=== PATIENT | male | born 1945 | race Caucasian/White ===

== ENCOUNTER → 2018-08-25 | Outpatient (CLI) | payer OTHER ==
[~2018-08-25] MED LIST: ADVAIR 500-501 EACH INH; ADVIL100 M2 PO; BENICAR40 MG PO; CARVEDILOL25 MG PO; NISOLDIPINE40 MG PO; NORCO 5-325 TA1 EACH PO
== END ==
LOC: RAD 10:41
DX: R60.9 Edema, unspecified (principal)

== ENCOUNTER → 2018-08-26 | Outpatient (CLI) | payer OTHER | LOC: ULTRA 10:37 | DX: M79.89 Other specified soft tissue disorders (principal); R79.1 Abnormal coagulation profile ==

== ENCOUNTER → 2018-12-17 | Outpatient (CLI) | payer OTHER | LOC: RAD 11:42 | DX: M47.26 Other spondylosis with radiculopathy, lumbar region (principal); M41.86 Other forms of scoliosis, lumbar region; I70.0 Atherosclerosis of aorta ==

== ENCOUNTER → 2018-12-24 | Outpatient (CLI) | payer OTHER | LOC: MRI 06:43 | DX: M51.16 Intervertebral disc disorders with radiculopathy, lumbar region (principal); I71.4 Abdominal aortic aneurysm, without rupture; M41.86 Other forms of scoliosis, lumbar region; M48.062 Spinal stenosis, lumbar region with neurogenic claudication; M12.88 Other specific arthropathies, not elsewhere classified, other specified site; M51.27 Other intervertebral disc displacement, lumbosacral region; M51.37 Other intervertebral disc degeneration, lumbosacral region; M48.07 Spinal stenosis, lumbosacral region ==

== ENCOUNTER → 2019-01-14 | Outpatient (CLI) | payer OTHER ==
[2019-01-14 09:40] LABS: CREATININE 1.2 mg/dL (0.7-1.3)
== END ==
LOC: CAT 09:07
PROVIDERS: Surgery Vascular Surgery
DX: K57.30 Diverticulosis of large intestine without perforation or abscess without bleeding (principal); J98.4 Other disorders of lung; I71.4 Abdominal aortic aneurysm, without rupture; R91.8 Other nonspecific abnormal finding of lung field; I70.8 Atherosclerosis of other arteries; I74.09 Other arterial embolism and thrombosis of abdominal aorta

== ENCOUNTER → 2019-01-27 | Outpatient (CLI) | payer OTHER ==
[~2019-01-27] VITALS: Ht 180.3 cm; Wt 96.7 kg
[~2019-01-27] MED LIST changes: +ACETAMINOPHEN325 M1 PO; +CRESTOR10 MG PO; +LISINOPRIL-HCT1 EAC1 PO; +NORCO 5-325 TA1 EAC1 PO
--- NOTE | ~2019-01-27 | HPC ---
[facility] [address] [place] [address] PAIN MANAGEMENT CONSULTATION Name: MARY MCPHERSON [facility] [id number] Admission: 01/27/19 Attend Phys: Mir Keller DO Discharge: Date of : 45 Report #: [id number] THIS REPORT FOR: //name// CC: Mir Vega MD DATE OF SERVICE: 01/27/2019 CHIEF COMPLAINT: Low back pain, left lower extremity pain with paresthesias. HISTORY OF PRESENT ILLNESS: As you know, the patient is a very pleasant 73-year-old male who reports acute onset of low back pain, left lower extremity pain that began approximately 2 months ago. He denies specific injury or trauma that may have led to symptom occurrence. He trialled conservative treatment options including gyky-njl-dwwyryq medications, rest, relaxation and light stretching at home. Unfortunately, this did not improve his overall symptoms. He sought evaluation through his PCP, Dr. Sourav Vega who evaluated the patient and sent for MRI. Findings were such, the patient was then referred to our clinic. The patient indicates today pain is continuous and constant; describes pain as sharp, numbness and tingling. Places current pain score a 7/10, daily average is 7/10, worst pain has been is 9+/10. He states that standing, rotation and certain bending conditions exacerbate his symptoms. It improves with nothing to date except for his hydrocodone that he takes with 1000 mg extra strength Tylenol, which provides benefit. He has been referred to our service to discuss treatment options for suspected lumbar radiculopathy. PAST MEDICAL HISTORY: 1. Asthma. 2. Benign prostatic hypertrophy. 3. Squamous cell carcinoma. 4. Depression. 5. Hyperlipidemia. 6. Hypertension. 7. Chronic lumbar radiculopathy. 8. Allergic rhinitis. 9. Abdominal aortic aneurysm. PAST SURGICAL HISTORY: 1. Rolfe teeth extraction. 2. Vasectomy. 3. Thoracic aortic stenting. 4. Excision of the squamous cell carcinoma via Mohs procedure. 5. LASIK. [facility] [address] [place] [address] PAIN MANAGEMENT CONSULTATION Name: MARY MCPHERSON Room #: REG [facility] Stevens.#: [id number] Admission: 01/27/19 Attend Phys: Mir Keller DO Discharge: Date of : 45 Report #: [id number] 6. Abdominal wall surgery. SOCIAL HISTORY: The patient denies tobacco, IV or illicit drug use. He mixed occasional alcohol beverage. 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 He is not receiving workmen's compensation nor is he trying to obtain disability benefits. Not in litigation in regards to pain. He is unaccompanied today. REVIEW OF SYSTEMS: Positive for night sweats, wearing corrective eyewear, heart trouble, asthma, changes in skin color and texture, chronic low back pain, left lower extremity pain with paresthesias. All other review of systems negative per 12-point review of systems other than those listed in history of present illness. Pain impact score 48/70 indicating hrjxfozp-yr-gvcknp interference of daily activities secondary to pain. 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 CURRENT MEDICATIONS: Carvedilol 25 mg b.i.d., hydrocodone/acetaminophen 5/325 one tab every 4 hours p.r.n. for pain, lovastatin 10 mg per day, lisinopril/hydrochlorothiazide 20/12.5 mg once a day, extra strength Tylenol 500 mg 2 tabs up to 3 times a day. IMAGING: MRI lumbar spine obtained on 12/24/2018 shows L1-L2 unremarkable; L2-L3 with moderate degenerative changes, mild facet arthropathy, mild broad-based disk bulge, mild central canal stenosis, mild foraminal stenosis. L3-L4, large broad-based disk bulge, hypertrophy of the ligamentum flavum, leading to severe central canal stenosis with canal measuring 6 mm; severe narrowing of the right lateral recess, moderate left. L4-L5, large broad-based disk bulge, ligamentum flavum hypertrophy, severe central canal stenosis, central canal measuring 6 mm. Severe narrowing of the left lateral recess and cyhchogb-sr-yuuufk right lateral recess. L5-S1, eenl-ie-kxgvhuxu facet arthropathy changes, mild foraminal stenosis, no central canal stenosis. PQRS: The patient has osteoarthritic changes of the bilateral shoulders, cervical spine and lumbar spine. No rheumatoid arthritis. He is placing pain intensity at 7/10. He is not a fall risk, has not had a fall in last 3 months. He is not on blood thinners, but is treated for hypertension. He has been on opioids, but not for an extended period of time. He has a low opioid addiction potential based on our testing device. Pain impact is 48/70, severe interference of daily activities secondary to pain. PHYSICAL EXAMINATION: VITAL SIGNS: Blood pressure 158/113, pulse is 80, respiratory rate 16 and unlabored. The patient is 97% on room air. Height 5 feet 11 inches tall, [address] [address] PAIN MANAGEMENT CONSULTATION Name: MARY MCPHERSON Room #: REG [facility]#: [id number] Admission: 01/27/19 Attend Phys: Mir Keller DO Discharge: Date of : 45 Report #: [id number] weight 213.2 pounds, BMI calculated 29.7. GENERAL: Well-developed, well-nourished, well-hydrated 73-year-old male appearing stated age, pain is rated around 7/10. HEENT: Normocephalic, atraumatic. Pupils equal, round, reactive to light. Extraocular muscles are intact. Sclerae are nonicteric without injection. NEUROLOGIC: Cranial nerves 2-12 grossly intact. Speech is fluent. The patient deemed a good historian. LUNGS: Clear, no wheezing, rhonchi or rales. CARDIOVASCULAR: Regular. No appreciable gallop, no rub. ABDOMEN: Soft, nontender, nondistended, normal active bowel sounds. EXTREMITIES: Show no clubbing, no cyanosis, and no edema. MUSCULOSKELETAL: Lower extremity strength equal and symmetrical 5/5, intact to light touch from L1 through S2 dermatomes. Seated straight leg raising negative. Supine straight leg raising positive on the left. Marycarmen's test negative. Gait is antalgic favoring the left lower extremity over right. Muscle bulk and tone appears symmetrical in comparing the left lower extremity to right. Ankle clonus negative. Babinski's is negative. Deep tendon reflexes are symmetrical at patella and Achilles. ASSESSMENT: 1. Symptomatic lumbar radiculopathy. 2. 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 3. Displacement of the lumbar intervertebral disk with radiculopathy. 4. Lumbosacral spondylosis with radiculopathy. 5. Foraminal stenosis of the lumbar spine. 6. Facet arthropathy of the lumbar spine. 7. Degeneration of the lumbar spine. 8. Chronic intractable pain. PLAN: Based on today's physical exam, history the patient has provided, the description the patient uses in regards to pain as well as location of symptoms, likely source of the patient's pain is the lumbar radiculopathy. We have spent over 24 minutes of time reviewing the patient's MRI and correlating the findings in that MRI to his current presentation of pain. We also utilized not only the imaging study but modeling here in the office to show the patient the pathology as it exists. After this review of his MRI, we discussed the treatment options for lumbar radicular symptoms secondary to severe central canal stenosis and severe neural foraminal stenosis. The following discussion was had: 1. We discussed physical therapy, stretching exercises and core strengthening as a treatment course. We discussed medication management utilizing neuropathic pain medications and a consistent nonsteroidal anti-inflammatory. We discussed epidural injections, for which the patient was referred to our clinic. We also discussed surgical options, which include spinal cord stimulator therapy or traditional decompressive surgery. After reviewing risks and benefits of all proposed treatment options, the patient chose to [place] [address] PAIN MANAGEMENT CONSULTATION Name: MARY MCPHERSON Room #: REG [facility] Amin#: [id number] Admission: 01/27/19 Attend Phys: Mir Keller DO Discharge: Date of : 45 Report #: [id number] epidural injection. 2. The patient was advised that third republican payer restrictions require the authorization be obtained before the patient could undergo an epidural injection. Authorization could take anywhere from 4-7 working days. We will begin this process immediately. Once we have this achieved, we will contact the patient and have him return to undergo the first in a series of lumbar epidural injections to address lumbar radicular pain. 3. No medication changes made at today's visit. The patient will continue current medical therapy as previously prescribed. We did advise the patient to take no more than 4000 mg of Tylenol a day. It does based on calculation appear he is taking nearly 5000 mg. We recommend a reduction in that medication to reduce the potential for toxicity with acetaminophen. The patient will make adjustments in his dosing. 4. We will see the patient back in followup visit once we have achieved authorization to undergo a lumbar epidural injection. We will keep you apprised of his response to this injection. We are hopeful we will have that injection done prior to the beginning of next week. 5. We wish to thank Dr. Vega for the referral of the patient to our clinic. We will keep you apprised of his response to treatment as we address lumbar radicular symptoms secondary to severe central canal and neural foraminal stenosis. Again, we wish to thank you for the opportunity to see the patient in consultation. By: [id number] Mir Keller DO /nt
[2019-01-27 12:44] VITALS: BP 158/113
--- NOTE | 2019-01-27 12:59 | NUR ---
Pain Clinic Assessment: 1. History of Osteoarthritis: NONE History of Rheumatoid Arthritis: NONE 2. Height: 5 ft. 11 in. 180.3 cm. Weight: 213.2 lb. oz. 96.707 kg. Patient's BMI: 29.7 3. Vital Signs: BP: 158/113 Pulse: 80 Resp: 16 Temp: 02 Sat: 97 ECG Mon: 4. Pain Intensity: 7 5. Fall Risk: Dizziness: N Needs help standing or walking: N Fallen in the last 3 months: N Fall risk comments: 6. Patient on Blood Thinner: None 7. History of Hypertension: Y 8. Opioid Therapy greater than 6 weeks: Opiate Contract Signed: 9. Risk Assessment Tool Provided: LOW 10. Functional Assessment Tool: 58/70 11. Recreational Drug Use: Never Drug Type: Tobacco Use: Never Smoker Tobacco Type: Amount or Packs/day: How Many Years: Alcohol Use: Yes Frequency: Weekly Quant: 3
== END ==
LOC: PAIN 07:08
DX: M51.16 Intervertebral disc disorders with radiculopathy, lumbar region (principal); M12.88 Other specific arthropathies, not elsewhere classified, other specified site; J45.909 Unspecified asthma, uncomplicated; F32.9 Major depressive disorder, single episode, unspecified; E78.5 Hyperlipidemia, unspecified; I10 Essential (primary) hypertension; M48.062 Spinal stenosis, lumbar region with neurogenic claudication; M51.26 Other intervertebral disc displacement, lumbar region; G89.4 Chronic pain syndrome

== ENCOUNTER → 2019-02-11 | Outpatient (CLI) | payer OTHER ==
[~2019-02-11] VITALS: Ht 180.3 cm; Wt 96.0 kg
[2019-02-11 08:16] VITALS: BP 137/94
--- NOTE | 2019-02-11 08:34 | NUR ---
Pain Clinic Assessment: 1. History of Osteoarthritis: NONE History of Rheumatoid Arthritis: NONE 2. Height: 5 ft. 11 in. 180.3 cm. Weight: 211.6 lb. oz. 95.981 kg. Patient's BMI: 29.5 3. Vital Signs: BP: 137/94 Pulse: 64 Resp: 16 Temp: 02 Sat: 98 ECG Mon: 4. Pain Intensity: 5 W/MEDS 8-9 IN MORNING 5. Fall Risk: Dizziness: Y Needs help standing or walking: N Fallen in the last 3 months: N Fall risk comments: 6. Patient on Blood Thinner: None 7. History of Hypertension: Y 8. Opioid Therapy greater than 6 weeks: N Opiate Contract Signed: 9. Risk Assessment Tool Provided: LOW 10. Functional Assessment Tool: 58/70 11. Recreational Drug Use: Never Drug Type: Tobacco Use: Never Smoker Tobacco Type: Amount or Packs/day: How Many Years: Alcohol Use: Yes Frequency: Quant:
--- NOTE | 2019-02-17 13:41 | HPC ---
[facility] [place] [address] PAIN MANAGEMENT CONSULTATION Name: MARY MCPHERSON [id number] Admission: 02/11/19 ������������������ Attend Phys: Mir Kelelr DO Discharge: ������������������ Date of : 45 Report #: [id number] THIS REPORT FOR: //name// CC: Mir Barnes DATE OF SERVICE: 02/11/2019 REFERRING PHYSICIAN: Sourav Vega M.D. CHIEF COMPLAINT: Low back pain, left lower extremity pain with paresthesias. HISTORY OF PRESENT ILLNESS: As you know, the patient is a very pleasant 73-year-old male who reports acute onset of low back pain, left lower extremity pain and paresthesias, began about 2 months ago. He denied any specific injury or trauma that may have led to symptom development. He was seen in consultation per the request of his PCP on 01/27/2019 and diagnosed with symptomatic lumbar radiculopathy secondary to severe central canal stenosis of lumbar spine. His central canal stenosis is multifactorial secondary to the displacement of lumbar intervertebral disk and facet arthropathy. He and I discussed the treatment options available for lumbar radiculopathy secondary to the findings of his imaging and determined he would undergo a lumbar epidural injection under fluoroscopic guidance. The patient has returned today in followup visit having received precertification to undergo the first in a series of lumbar epidural injections under fluoroscopic guidance to address his current 9/10 pain. 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 CURRENT MEDICATIONS: Carvedilol 12.5 mg b.i.d., hydrocodone 5/325 one tab every 4 hours p.r.n. for pain, lovastatin 10 mg per day, lisinopril/hydrochlorothiazide 20/12.5 mg once a day, Extra Strength Tylenol 500 mg 2 tabs 3 times a day. SOCIAL HISTORY: The patient denies tobacco, IV or illicit drug use. He admits to an occasional alcohol beverage. 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 IMAGING: No new imaging available. PQRS: The patient has arthritic changes of bilateral shoulders, cervical spine, and lumbar spine. No rheumatoid arthritis. He is placing pain intensity at 9/10. He is not a fall risk, has not had a fall in last 3 months. He is not on blood thinners, but is treated for hypertension. He is not on opioids. He has a low opiate addiction potential. Pain impact score 58/70 indicating severe interference of daily activities secondary to pain. [address] [address] PAIN MANAGEMENT CONSULTATION Name: MARY MCPHERSON Room #: REG [facility]#: [id number] Admission: 02/11/19 ������������������ Attend Phys: Mir Keller DO Discharge: ������������������ Date of : 45 Report #: [id number] PHYSICAL EXAMINATION: VITAL SIGNS: Blood pressure 137/94, pulse 64, respiratory rate 16 and unlabored. The patient is 98% on room air. Height 5 feet 11 inches tall, weight 211.6 pounds, BMI calculated 29.5. GENERAL: Well-developed, well-nourished, well-hydrated, 73-year-old male appearing stated age, pain is rated around on anywhere from 5-9/10. HEENT: Normocephalic, atraumatic. Pupils equal, round, reactive to light. EXTREMITIES: Show no clubbing, no cyanosis, and no edema. MUSCULOSKELETAL: Lower extremity strength remains symmetrical 5/5. Seated straight leg raising negative. Supine straight leg raising positive on the left. Marycarmen's test negative. Gait mildly antalgic favoring left lower extremity over right. ASSESSMENT: 1. Symptomatic lumbar radiculopathy. 2. Severe central canal stenosis of lumbar spine. 3. Displacement of lumbar intervertebral disk with radiculopathy. 4. Lumbosacral spondylosis with radiculopathy. 5. Foraminal stenosis of lumbar spine. 6. Facet arthropathy of the lumbar spine. 7. Degeneration of lumbar spine. 8. Chronic intractable pain. PLAN: 1. The patient returns today in followup visit to undergo lumbar epidural injection under fluoroscopic guidance. The patient has been advised of the risks and the benefits of a lumbar epidural injection. These risks include but are not necessarily limited to bleeding, bruising, infection, worsening pain, no relief of pain, also risk of temporary or permanent muscle weakness, temporary or permanent nerve damage, possible paralysis, post-dural puncture, headache, and . The patient states he understood and wished to proceed. 2. No medication changes made at today's visit. The patient will continue current medical therapy as prior prescribed. 3. We will see the patient back in followup visit on an as needed basis for possible next in the series of lumbar epidural injections. PROCEDURE NOTE DESCRIPTION OF PROCEDURE: L5-S1 left paramedian epidural steroid injection under fluoroscopic guidance. This is the first procedure of the first series that the patient is undergoing. After obtaining written consent, the patient was taken back to the fluoroscopy suite, placed in a prone position with pillow under the abdomen to decrease [address] [address] PAIN MANAGEMENT CONSULTATION Name: MARY MCPHERSON Room #: REG [facility]#: [id number] Admission: 02/11/19 ������������������ Attend Phys: Mir Keller DO Discharge: ������������������ Date of : 45 Report #: [id number] lumbar lordosis. The skin overlying the lumbosacral area was then prepped and draped in aseptic fashion. The L5-S1 vertebral interspace was then identified by AP fluoroscopy. The skin and subcutaneous tissue overlying the target site of injection was anesthetized with 3 mL 1% lidocaine. A 20-gauge 3-1/2-inch Tuohy needle was then advanced under fluoroscopic guidance towards the epidural space using a left paramedian approach. The epidural space was identified using loss of resistance to air technique. After negative aspiration for heme or cerebrospinal fluid, a total of 1 mL of Omnipaque was injected. A lumbar epidurogram was confirmed using both AP and lateral fluoroscopy. After negative aspiration for heme or cerebrospinal fluid, 5 mL of a solution containing 2 mL of 40 mg per mL, 80 mg total triamcinolone along with 3 mL of lidocaine 1% was injected in increments. Contrast spread was noted in posterior epidural space. The needle was then retracted approximately half way and needle tract flushed with 1 mL of 1% lidocaine. Needle was then removed. There were no apparent sensory or motor deficits in the lower extremity following the procedure. A sterile bandage was placed over the injection site. The heart rate, pulse, oximetry and blood pressure were continuously monitored after the procedure. There were no apparent complications. The patient tolerated the procedure well and was carefully escorted to the recovery room in stable condition. There were no apparent complications. After meeting discharge criteria, the patient was then discharged home. ��������������������������������������������� <ELECTRONICALLY SIGNED> ���������������������������������������� By: Mir Keller DO ��������������������������������������������� 02/17/19 1341 [id number] Mir Keller DO /nt
== END | disposition home or self-care (01) ==
LOC: PAIN 06:51
DX: M51.16 Intervertebral disc disorders with radiculopathy, lumbar region (principal); M48.061 Spinal stenosis, lumbar region without neurogenic claudication; M99.73 Connective tissue and disc stenosis of intervertebral foramina of lumbar region; M12.88 Other specific arthropathies, not elsewhere classified, other specified site; G89.29 Other chronic pain; M47.27 Other spondylosis with radiculopathy, lumbosacral region; Z88.8 Allergy status to other drugs, medicaments and biological substances; Z79.899 Other long term (current) drug therapy

== ENCOUNTER → 2019-02-25 | Outpatient (CLI) | payer OTHER ==
[~2019-02-25] VITALS: Ht 180.3 cm; Wt 93.0 kg
[~2019-02-25] MED LIST changes: +NEURONTIN 300300 M1 PO
[2019-02-25 08:11] VITALS: BP 144/93
--- NOTE | 2019-02-25 08:16 | NUR ---
Pain Clinic Assessment: 1. History of Osteoarthritis: NONE History of Rheumatoid Arthritis: NONE 2. Height: 5 ft. 11 in. 180.3 cm. Weight: 205.0 lb. oz. 92.988 kg. Patient's BMI: 28.6 3. Vital Signs: BP: 144/93 Pulse: 57 Resp: 14 Temp: 02 Sat: 100 ECG Mon: 4. Pain Intensity: 5 5. Fall Risk: Dizziness: Y Needs help standing or walking: N Fallen in the last 3 months: N Fall risk comments: dizziness comes and goes 6. Patient on Blood Thinner: None 7. History of Hypertension: Y 8. Opioid Therapy greater than 6 weeks: N Opiate Contract Signed: 9. Risk Assessment Tool Provided: LOW 10. Functional Assessment Tool: 58/70 11. Recreational Drug Use: Never Drug Type: Tobacco Use: Former Smoker Tobacco Type: Amount or Packs/day: How Many Years: Alcohol Use: Yes Frequency: Weekly Quant:
--- NOTE | 2019-03-03 07:47 | HPC ---
[facility] [address] [place] [address] PAIN MANAGEMENT CONSULTATION Name: MARY MCPHERSON Room #: REG [facility].#: [id number] Admission: 02/25/19 Attend Phys: Mir Keller DO Discharge: Date of : 45 Report #: [id number] THIS REPORT FOR: //name// CC: Mir Vega MD DATE OF SERVICE: 02/25/2019 REFERRING PHYSICIAN: Sourav Vega MD CHIEF COMPLAINT: Low back pain, left lower extremity pain with paresthesias. HISTORY OF PRESENT ILLNESS: As you know, the patient is a very pleasant 74-year-old male who returns today in followup visit requesting to undergo next in the series of lumbar epidural injections under fluoroscopic guidance. The patient reports pain level of 5/10 today. As you are aware, the patient underwent a lumbar epidural injection under fluoroscopic guidance at last visit, which gave greater than 50% improvement in overall pain. Unfortunately, his symptoms have begun to return. As you are aware, the patient has significant central canal stenosis at the L3-L4 level secondary to a large broad-based disk bulge, hypertrophy of the ligamentum flavum, and facet arthropathy pain. This reduces the canal to 6 mm. He also has similar findings at the L4-L5 level consistent with his issues. Ultimately, the patient may need surgical intervention, but epidural injection has been somewhat beneficial and he returns to undergo next in the series. 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 CURRENT MEDICATIONS: Carvedilol 12.5 mg b.i.d., hydrocodone 5/325 one tab every 4 hours p.r.n. pain, lovastatin 10 mg per day, lisinopril/hydrochlorothiazide 20/12.5 mg once a day, Extra Strength Tylenol 500 mg 2 tabs 3 times a day. SOCIAL HISTORY: The patient denies tobacco, IV or illicit drug use. Admits to occasional alcohol beverage. 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 He is working, not receiving workmen's compensation. He is accompanied by his present in room today. IMAGING: No new imaging available. PQRS: The patient has known bilateral shoulder osteoarthritis, cervical arthritic changes and lumbar arthritic changes. No rheumatoid arthritis. He is placing pain intensity at 5/10. He is not a fall risk, has not had a fall in last 3 months. He is not on any blood thinners, but is treated for hypertension. He is not on chronic opioids and does have a low opioid addiction potential, placing pain impact score of 58/70, severe interference of daily [address] [address] PAIN MANAGEMENT CONSULTATION Name: MARY MCPHERSON Ernestine Room #: [facility]#: [id number] Admission: 02/25/19 Attend Phys: Mir Keller DO Discharge: Date of : 45 Report #: [id number] activities secondary to pain. PHYSICAL EXAMINATION: VITAL SIGNS: Blood pressure 144/93, pulse is 57, respiratory rate 14 and unlabored. The patient is 100% on room air. Height 5 feet 11 inches tall, weight 205 pounds, BMI calculated 28.6. GENERAL: Well-developed, well-nourished, well-hydrated 74-year-old male appearing his stated age, pain is rated around 5/10. HEENT: Normocephalic, atraumatic. Pupils equal, round, reactive to light. EXTREMITIES: Show no clubbing, no cyanosis, and no edema. MUSCULOSKELETAL: Lower extremity strength equal and symmetrical 5/5 except for dorsiflexion of the foot on the left, which appears to be 4/5. Also, decreased strength over the extensor hallucis longus 4/5. Intact to light touch from L1 through S2 dermatomes. Seated straight leg raising negative. Supine straight leg raising positive on the left. ASSESSMENT: 1. Symptomatic lumbar radiculopathy. 2. Severe and progressively worsening central canal stenosis at L3-L4 and L4-L5. 3. Displacement of lumbar intervertebral disk with radiculopathy. 4. Lumbosacral spondylosis with radiculopathy. 5. Foraminal stenosis of the lumbar spine. 6. Facet arthropathy of the lumbar spine. 7. Degeneration of the lumbar spine. 8. Chronic intractable pain. PLAN: 1. The patient returns today in followup visit having noted greater than 50% improvement in overall pain with the initial epidural injection, but unfortunately his symptoms have begun to return. He returns to undergo next in the series of epidural injections and to discuss other treatment options. I have advised the patient of the risks and benefits of a repeat epidural injection. These risks include but are not necessarily limited to bleeding, bruising, infection, worsening of pain, no relief of pain, also risk of temporary or permanent muscle weakness, temporary or permanent nerve damage, possible paralysis and . The patient states understood and wished to proceed. 2. The patient and I did discuss other treatment options for his ongoing pain issues due to the progressively worsening central canal stenosis at L3-L4 and L4-L5, these treatments could include neuropathic pain medications and a consistent nonsteroidal anti-inflammatory in conjunction with his current opioids being provided by his PCP. We discussed spinal cord stimulator and ultimately surgical decompression. After reviewing the risks and benefits of all proposed treatment options, the patient chose to make adjustments in medication management as well as the epidural injection as above. [facility] [address] [place] [address] PAIN MANAGEMENT CONSULTATION Name: KATEMARY RODRIGUEZ [facility] [id number] Admission: 02/25/19 Attend Phys: Mir Keller DO Discharge: Date of : 45 Report #: [id number] 3. The patient will be started on gabapentin 300 mg dose 1 tab p.o. at bedtime for 3 nights, then 2 tabs p.o. at bedtime for 3 nights, then 3 tabs p.o. at bedtime for 3 nights, then 1 tab p.o. q.a.m. and 3 tabs p.o. at bedtime. The patient was given #120 tablets, advised to watch for side effects of sleepiness, disorientation, confusion, and mental slowing. If he notes any side effects, reduce to the dose prior, continue the medication and contact our clinic for directions. 4. We will see the patient back in followup visit in approximately 31 days for the possible next in the series of lumbar epidural injections if necessary. PROCEDURE NOTE DESCRIPTION OF PROCEDURE: L5-S1 left paramedian epidural steroid injection under fluoroscopic guidance. This is the second procedure of the first series that the patient is undergoing. After obtaining written consent, the patient was taken back to the fluoroscopy suite, placed in a prone position with pillow under the abdomen to decrease lumbar lordosis. The skin overlying the lumbosacral area was then prepped and draped in aseptic fashion. The L5-S1 vertebral interspace was then identified by AP fluoroscopy. The skin and subcutaneous tissue overlying the target site of injection was anesthetized with 3 mL 1% lidocaine. A 20-gauge 3-1/2-inch Tuohy needle was then advanced under fluoroscopic guidance towards the epidural space using a left paramedian approach. The epidural space was identified using loss of resistance to air technique. After negative aspiration for heme or cerebrospinal fluid, a total of 1 mL of Omnipaque was injected. A lumbar epidurogram was confirmed using both AP and lateral fluoroscopy. After negative aspiration for heme or cerebrospinal fluid, 5 mL of solution containing 2 mL 40 mg per mL, 80 mg total triamcinolone along with 3 mL of lidocaine 1% was injected in increments. Contrast spread was noted post-epidural space. The needle was then retracted approximately half way and needle tract flushed with 1 mL of 1% lidocaine. Needle was then removed. There were no apparent sensory or motor deficits in the lower extremity following the procedure. A sterile bandage was placed over the injection site. The heart rate, pulse, oximetry and blood pressure were continuously monitored after the procedure. There were no apparent complications. The patient tolerated the procedure well and was carefully escorted to the recovery room in stable condition. There were no apparent complications. After meeting discharge criteria, the patient was then discharged home. <ELECTRONICALLY SIGNED> By: Mir Keller DO 03/03/19 [id number] [id number] Mir Keller DO /nt
== END | disposition home or self-care (01) ==
LOC: PAIN 06:49
DX: M51.16 Intervertebral disc disorders with radiculopathy, lumbar region (principal); M48.061 Spinal stenosis, lumbar region without neurogenic claudication; M47.27 Other spondylosis with radiculopathy, lumbosacral region; M99.73 Connective tissue and disc stenosis of intervertebral foramina of lumbar region; M12.88 Other specific arthropathies, not elsewhere classified, other specified site; G89.29 Other chronic pain; I10 Essential (primary) hypertension; Z88.8 Allergy status to other drugs, medicaments and biological substances; Z79.899 Other long term (current) drug therapy; Z87.891 Personal history of nicotine dependence

== ENCOUNTER → 2019-03-31 | Outpatient (CLI) | payer OTHER ==
[~2019-03-31] VITALS: Ht 180.3 cm; Wt 96.9 kg
[2019-03-31 08:20] VITALS: BP 180/130
--- NOTE | 2019-03-31 08:45 | NUR ---
Pain Clinic Assessment: 1. History of Osteoarthritis: NONE History of Rheumatoid Arthritis: NONE 2. Height: 5 ft. 11 in. 180.3 cm. Weight: 213.6 lb. oz. 96.888 kg. Patient's BMI: 29.8 3. Vital Signs: BP: 180/130 Pulse: 66 Resp: 16 Temp: 02 Sat: 98 ECG Mon: 4. Pain Intensity: 8 5. Fall Risk: Dizziness: N Needs help standing or walking: N Fallen in the last 3 months: Y Fall risk comments: dizziness comes and goes 6. Patient on Blood Thinner: None 7. History of Hypertension: Y 8. Opioid Therapy greater than 6 weeks: N Opiate Contract Signed: 9. Risk Assessment Tool Provided: LOW 10. Functional Assessment Tool: 58/70 11. Recreational Drug Use: Never Drug Type: Tobacco Use: Former Smoker Tobacco Type: Amount or Packs/day: How Many Years: Alcohol Use: Yes Frequency: Quant:
--- NOTE | 2019-04-07 13:04 | HPC ---
[facility] [place] [address] PAIN MANAGEMENT CONSULTATION Name: MARY MCPHERSON Room #: REG [facility].#: [id number] Admission: 03/31/19 Attend Phys: Mir Keller DO Discharge: Date of : 45 Report #: [id number] THIS REPORT FOR: //name// CC: Mir Vega MD DATE OF SERVICE: 03/31/2019 CHIEF COMPLAINT: Low back pain, left lower extremity pain with paresthesias and atrophy. HISTORY OF PRESENT ILLNESS: As you know, the patient is a very pleasant 74-year-old male who returns today in followup visit having undergone 2 epidural injections under fluoroscopic guidance. Unfortunately, his symptoms have not improved. He relays information today about a recent fall where he "just lost the use of his left leg and fell". He was looking that he did not injure any other areas of his body with this fall. He has returned today in followup visit stating increasing pain and decreasing function. He indicates that over the past couple of weeks, he has noted changes in his musculature of the left lower extremity when compared to the right. He is unable to bear weight on the left leg without loss of balance, this is unrelated to pain. He returns today to discuss treatment options. As you are aware, the patient suffers from severe spinal stenosis of the lumbar spine, located at the L3-L4 level with compression of the cord all the way to 6 mm and severe narrowing of the spaces at that level and again at the L4-L5 level showing a large broad-based disk bulge and severe central canal stenosis also measuring 6 mm. We have attempted 2 epidural injections, but unfortunately his symptoms did not improve. He returns today to discuss treatment options. 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 SOCIAL HISTORY: The patient denies tobacco, alcohol, IV or illicit drug use. He is accompanied by his present in room today. IMAGING: No new imaging available. PQRS: The patient has known arthritic changes of the bilateral shoulders, cervical spine and lumbar spine. No rheumatoid arthritis. He is a fall risk and has had a recent fall. He is using a cane for ambulation. He is not on blood thinners, but is treated for hypertension. [place] [address] PAIN MANAGEMENT CONSULTATION Name: MARY MCPHERSON [facility] [id number] Admission: 03/31/19 Attend Phys: Mir Keller DO Discharge: Date of : 45 Report #: [id number] and has a low opioid addiction potential. Pain impact score 50/70 indicating severe interference of daily activities secondary to pain. PHYSICAL EXAMINATION: VITAL SIGNS: Blood pressure 180/130. Repeat blood pressure 211/132, pulse 66, respiratory rate 16 and unlabored. The patient is 98% on room air. Height 5 feet 11 inches tall, weight 213.6 pounds, BMI calculated 29.8. GENERAL: Well-developed, well-nourished, well-hydrated 74-year-old male appearing stated age, pain is rated around 8/10. HEENT: Normocephalic, atraumatic. Pupils equal, round, reactive to light. Speech is fluent. EXTREMITIES: Show no clubbing, no cyanosis, no edema. MUSCULOSKELETAL: Gait is antalgic favoring left lower extremity over right. Muscle bulk and tone is reduced on the left when compared to the right. He has symmetrical lower extremity strength 5/5 except for dorsiflexion of the left foot, which appears to be 4/5. Also noted weakness with hip flexion and knee extension on the left when compared to the right. He is intact to light touch from L1 through S2 dermatomes. Seated straight leg raising positive on the left. Supine straight leg raising positive on the left. Marycarmen's test is negative. There is also noted atrophy of the musculature of the left lower extremity when compared to the right. ASSESSMENT: 1. Symptomatic lumbar radiculopathy. 2. Severe and progressively worsening spinal stenosis of lumbar spine. 3. Displacement of lumbar intervertebral disk with radiculopathy. 4. Lumbosacral spondylosis with radiculopathy. 5. Foraminal stenosis of lumbar spine. 6. Facet arthropathy of the lumbar spine. 7. Degeneration of lumbar spine. 8. Chronic intractable pain. PLAN: 1. The patient has returned today in followup visit with recent falls due to weakness in the left lower extremity. It is noted the patient also has worsening of the atrophy of the left lower extremity and strength has been reduced since our last visit. I believe his central canal stenosis is now not amenable to injections as the 2 epidural injections provided only transient improvement in symptoms, but did not improve the weakness that he has been experiencing. This in conjunction with the fact the patient is showing some atrophy in the left lower extremity. I believe require surgical consultation. We have taken the liberty of contacting Dr. Link Latham's office, Neurosurgery, [facility] and they are willing to see him today at about 11:45. We have given the patient information to follow up with Dr. Latham. He is also taking a disc of his recent MRI to discuss further. The atrophy in the falls have made me quite concerned about this patient's case and I believe that [facility] [address] [place] [address] PAIN MANAGEMENT CONSULTATION Name: KATEMARY RODRIGUEZ Room #: REG [facility] Hilda.#: [id number] Admission: 03/31/19 Attend Phys: Mir Keller DO Discharge: Date of : 45 Report #: [id number] decompression will be necessary. The fact that the epidurals did not provide improvement in the pain for any length of time would indicate that these will have little or no effect on the stenosis, the patient is currently experiencing. The patient is amenable and he is willing to see Dr. Latham today. 2. The patient's blood pressure is quite elevated today. His initial blood pressure upon entry was 180/130. He states he has taken all his medications for the day. Repeat blood pressure was 211/132. He denied vision changes, headaches, changes in kidney function concerning of end organ damage, though he has had a dissecting aortic aneurysm in the past and this makes me quite nervous. I have contacted the patient's primary care physician, Dr. Vega who he will be seeing at 9:45 today for adjustments in his antihypertensive medications. Even with rest and relaxation here at the office, his blood pressure remained quite elevated. I believe adjustments in his medication are necessary. It was noted that the patient's first visit to our clinic, his blood pressure was quite elevated at that visit as well with blood pressure of 158/113. At that time, he was equating his increased blood pressure to his increase in pain yet his heart rate does not indicate sympathetic discharge seen with pain and his heart rate today is only 66 though it is controlled to some degree with his medications and one would have to see an increase in his heart rate along with blood pressure to be able to equate the pain. I believe this is essential hypertension and needs better control. The patient will be following up with his PCP. 4. We discussed the possibility of having the patient undergo an epidural injection, though given the fact that he has received no significant improvement and he is showing atrophy in the left lower extremity and recent falls. I believe surgical decompression in this patient's case will be necessary. Further delay of treatment, I think it could be quite detrimental. The patient is agreeable. 5. The patient will contact our clinic in regards to his blood pressure and his evaluation with Dr. Latham from a Neurosurgery standpoint after he is seen both today. We do wish to stay vigilant on the patient's case and be aware of his treatment course. <ELECTRONICALLY SIGNED> By: Mir Keller DO 04/07/19 1304 [id number] Mir Keller DO /nt
== END ==
LOC: PAIN 06:40
DX: M48.061 Spinal stenosis, lumbar region without neurogenic claudication (principal); M51.16 Intervertebral disc disorders with radiculopathy, lumbar region; M47.817 Spondylosis without myelopathy or radiculopathy, lumbosacral region; M12.88 Other specific arthropathies, not elsewhere classified, other specified site; G89.4 Chronic pain syndrome

== ENCOUNTER → 2020-02-05 | Outpatient (CLI) | payer OTHER ==
[2020-02-05 09:22] LABS: CREATININE 1.1 mg/dL (0.7-1.3)
== END ==
LOC: CAT 08:40
PROVIDERS: ATTEND Surgery Vascular Surgery
DX: K57.30 Diverticulosis of large intestine without perforation or abscess without bleeding (principal); I77.810 Thoracic aortic ectasia; I70.0 Atherosclerosis of aorta; J84.10 Pulmonary fibrosis, unspecified; M47.816 Spondylosis without myelopathy or radiculopathy, lumbar region; I70.1 Atherosclerosis of renal artery; I71.4 Abdominal aortic aneurysm, without rupture

== ENCOUNTER → 2020-03-22 | Outpatient (CLI) | payer OTHER | LOC: LAB 10:51 | PROVIDERS: ATTEND Neuromusculoskeletal Medicine & OMM | DX: Z20.828 Contact with and (suspected) exposure to other viral communicable diseases (principal) ==